=== PATIENT | male | born 1970 | race Caucasian/White ===

== ENCOUNTER 2017-11-19 06:39 | Emergency (ER) | payer MEDICARE, OTHER ==
--- NOTE | 2017-11-19 08:20 | ED Physician Documentation ---
General Adult - HISTORIAN Historian: patient - HPI Stated Complaint: left leg pain Chief Complaint: General Adult Onset: days ago (2) Timing: still present Severity: moderate Further Comments: yes (Pt is a 47 yo male with pain in his L leg. Pt has had a lump in his L thigh for some time, but it hadn't bothered him until the past 2 days. Pt states that the lump has gotten bigger and has become very painful and that he has intermittent numbness in his L leg and thigh. Pt was advised to have an u/s of the lump some time ago, but hasn't done that. Pt also says he has had a rapid heart rate, and has not had that before.) - ROS CONST: no problems EYES/ENT: none CVS/RESP: other (tachycardia) GI/: none MS/SKIN/LYMPH: other (swelling in L thigh, with pain and numbness in L thigh and leg) - PAST HX Past History: other (HTN, neck/back pain, DDD) Surgeries/Procedures: other (L5-S-1 spinal surgery) Allergies/Adverse Reactions: Allergies Allergy/AdvReac Type Severity Reaction Status Date / Time No Known Drug Allergies Allergy Verified 11/19/17 07:01 Home Medications: Ambulatory Orders Medication Instructions Recorded NK [NK] 10/17/15 - SOCIAL HX Smoking History: cigarettes - FAMILY HX Family History: No - VITAL SIGNS Vital Signs: Vital Signs Temp Pulse Resp BP Pulse Ox 98.0 F 108 H 18 149/101 97 11/19/17 06:54 11/19/17 06:54 11/19/17 06:54 11/19/17 06:54 11/19/17 06:54 - REVIEWED ASSESSMENTS Nursing Assessment Reviewed: Yes Vitals Reviewed: Yes Progress - Progress Progress: Transfer to [facility] for L LE u/s. Dr. De La Rosa. - EKG/XRAY/CT EKG: NSR (HR=91, normal axis; normal [place] interval.) ED Results Lab/Radiology - Orders Orders: ED Orders Category Date Time Status EKG WITH COMPARISON Stat Ther 11/19/17 Ordered General Adult Physical Exam - PHYSICAL EXAM GENERAL APPEARANCE: moderate distress EENT: pharynx normal NECK: normal inspection, supple RESPIRATORY: no resp distress, chest non-tender, breath sounds normal CVS: tachycardia ABDOMEN: soft, no organomegaly, normal bowel sounds BACK: normal inspection SKIN: warm/dry, normal color EXTREMITIES: other (There is a 3 cm mass in L thigh. (? lipoma) There is no over-all swelling of the thigh no redness. Mass is tender.) NEURO: oriented X3, motor nml, sensation nml Discharge Clincal Impression: Pain/numbness, mass in L thigh Referrals: Primary Doctor,No [Primary Care Provider] - Condition: Stable Disposition: 02 XFER [facility] HOSP Decision to Admit: NO Decision Time: 08:26
[2017-11-19 08:33] VITALS: BP 120/83
== END 2017-11-19 08:27 | disposition short-term general hospital (02) ==
LOC: ED 06:39
DX: M79.652 Pain in left thigh (principal); R22.42 Localized swelling, mass and lump, left lower limb
CPT/HCPCS: 99283